=== PATIENT | female | born 1995 | race Caucasian/White ===

== ENCOUNTER 2016-12-27 13:59 | Emergency (ER) | payer OTHER ==
[~2016-12-27] VITALS: Ht 175.3 cm; Wt 66.2 kg
[2016-12-27 14:02] VITALS: TEMP 36.8; Ht 175.3 cm; Wt 66.2 kg
[2016-12-27] MEDS ORDERED: BCPILLS PO (14:36)
[2016-12-27] MEDS ORDERED: IBUPROFEN 600 MG TAB PO STA (14:49)
--- NOTE | 2016-12-27 15:26 | DIAGNOSTIC IMAGING REPORT ---
PELVIS 1 OR 2 VIEW ROUTINE CLINICAL HISTORY: mval, pelvic pain pain COMPARISON: None. DISCUSSION: The bones and joint spaces appear intact. There is no evidence of fracture, dislocation or bony disease. There is no evidence for soft tissue swelling. IMPRESSION: Negative study. Electronically signed by: Willard Tejada M.D. 12/27/2016 3:25 PM Dictated Date/Time: 12/27/2016 3:25 PM
--- NOTE | 2016-12-27 15:28 | DIAGNOSTIC IMAGING REPORT ---
LEFT FOOT MIN 3 VIEWS ROUTINE CLINICAL HISTORY: left foot pain pain COMPARISON: None. DISCUSSION: The bones and joint spaces appear intact. There is no evidence of fracture, dislocation or bony disease. There is no evidence for soft tissue swelling. IMPRESSION: Negative study. Electronically signed by: Willard Tejada M.D. 12/27/2016 3:26 PM Dictated Date/Time: 12/27/2016 3:25 PM
--- NOTE | 2016-12-27 15:30 | DIAGNOSTIC IMAGING REPORT ---
LEFT FEMUR 2 VIEWS ROUTINE CLINICAL HISTORY: left leg pain pain COMPARISON: None. DISCUSSION: The bones and joint spaces appear intact. There is no evidence of fracture, dislocation or bony disease. Well-circumscribed circumscribed lucency distal aspect femoral shaft felt to be an anatomic variation and/or benign chondroma. No acute bony abnormality is appreciated. IMPRESSION: No acute process. Electronically signed by: Willard Tejada M.D. 12/27/2016 3:29 PM Dictated Date/Time: 12/27/2016 3:28 PM
--- NOTE | 2016-12-27 15:31 | DIAGNOSTIC IMAGING REPORT ---
LEFT TIBIA/FIBULA 2 VIEWS ROUTINE CLINICAL HISTORY: left leg pain pain COMPARISON: Trauma DISCUSSION: The bones and joint spaces appear intact. There is no evidence of fracture, dislocation or bony disease. There is no evidence for soft tissue swelling. IMPRESSION: Negative study. Electronically signed by: Willard Tejada M.D. 12/27/2016 3:29 PM Dictated Date/Time: 12/27/2016 3:29 PM
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
[2016-12-27 16:07] VITALS: BP 120/70; PULSE 62; O2SAT 99
== END 2016-12-27 16:09 | disposition home or self-care (01) ==
LOC: C.EDB 14:02 → C.EDD 16:09
DX: T14.8 Other injury of unspecified body region (principal); V03.10XA Pedestrian on foot injured in collision with car, pick-up truck or van in traffic accident, initial encounter; Y92.410 Unspecified street and highway as the place of occurrence of the external cause